=== PATIENT | male | born 1980 | race Two or more races ===

== ENCOUNTER 2019-12-13 08:29 | Outpatient (REF) | payer OTHER, SELFPAY | END 2019-12-13 08:30 | disposition home or self-care (01) | LOC: HO.LAB 08:29 | PROVIDERS: PCP Nurse Practitioner Family; Visit Provider Internal Medicine | DX: Z20.828 Contact with and (suspected) exposure to other viral communicable diseases (principal) | CPT/HCPCS: 87635 ==

== ENCOUNTER 2020-01-10 14:54 | Emergency (ER) | payer OTHER, SELFPAY ==
[2020-01-10 16:45] VITALS: BP 154/95; PULSE 98; RESP 17; TEMP 36.9; O2SAT 99
[2020-01-10 16:47] VITALS: PULSE 98; RESP 17; TEMP 36.9; O2SAT 99; BMI 31.8
--- NOTE | 2020-01-10 17:32 | ED.SKABFB ---
HPI - Skin/Abscess/Foreign Bdy General Chief complaint: Skin/Abscess/Foreign Body Stated complaint: ARM SWELLING Time Seen by Provider: 01/10/20 17:29 Source: patient Mode of arrival: ambulatory History of Present Illness HPI narrative: 39-year-old male presenting to ED complaining of left arm pain, swelling, and erythema x3 days s/p helping a friend outside. Unknown if spider or insect bite. Reports arm feels warm it. Denies fever, chills, injury /rash other area, drainage from area, IV drug abuse MD complaint: rash Onset (ago): day(s) Related Data Previous Rx's Medication Instructions Recorded cephalexin [Keflex] 500 mg PO Q6H 7 Days #28 cap 01/10/20 doxycycline hyclate 100 mg PO BID 7 Days #14 tab 01/10/20 Allergies Allergy/AdvReac Type Severity Reaction Status Date / Time No Known Allergies Allergy Verified 01/10/20 17:10 Review of Systems Review of Systems: Constitutional: No Weight loss, No Fever, No Chills Musculoskeletal: +arm pain, No Myalgias, +arm Swelling Skin: + Skin Lesions, No rash Neuro: No Weakness, No Numbness, No Paresthesias Yes all other systems are reviewed and are negative [facility] Past Medical History Attestation statement: The following information was validated with the patient. Social History Social History Smoking Status: Current every day smoker Use of substances other than those prescribed or required for medical reasons: No Advance Directives: No Advance Directives Information Provided: No Physical Exam Vital Signs: Vital Signs: Last Vital Signs Temp 98.5 F 01/10/20 16:47 Pulse 98 01/10/20 16:47 Resp 17 01/10/20 16:47 BP 154/95 H 01/10/20 16:45 Pulse Ox 99 01/10/20 16:47 Body Mass Index 31.8 Const: General: cooperative and healthy appearing Orientation/consciousness: patient oriented x3 Limitations: no limitations HENMT: Head: Yes normal to inspection Ears: hearing grossly normal bilaterally General nose exam: Normal external nose present Face and sinus: Yes normal facial exam Eyes: General: appearance normal, both eyes and all related structures EOM: EOMs intact bilaterally Neck: Neck: Yes normal visual inspection Chest: Chest palpation & inspection: normal inspection of the chest Neuro: General: patient oriented x3 Gait exam (Neuro): Normal gait present Extrem: Other: + left forearm with tender indurated abscess with surrounding erythema. No fluctuance or draining/pointing General: Yes normal to inspection MDM - Skin/Abscess/Foreign Bdy MDM Narrative Medical decision making narrative: On exam VSS, NAD/well-appearing, concern for early abscess and cellulitis. Lower concern for IVDA. Area will not drainable at this time. 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, he verbalized understanding Area marked with marker Discharge Plan Discharge Clinical Impression: Cellulitis Abscess of skin or subcutaneous tissue Qualifiers: Site of cutaneous abscess: extremity Site of cutaneous abscess of extremity: upper extremity Laterality: left Qualified Code(s): L02.414 - Cutaneous abscess of left upper limb Patient Disposition: Home, Self-Care Instructions: Cellulitis (ED), Abscess (ED) Additional Instructions: You have an early abscess with surrounding cellulitis Keflex and doxycycline are antibiotics, take as prescribed You should be re-evaluated in 2 days If area grows outside of the lines we flaco today, area comes to head like a pimple, or you have fever return to the ED Tiene un absceso temprano con celulitis circundante. Keflex y doxiciclina son antibi?ticos, t?melos seg?n lo prescrito. Deber?a ser reevaluado en 2 d?as Si el ?joce crece fuera de las l?neas que dibujamos hoy, el ?joce se le sube verito un grano o si tiene fiebre, regrese al servicio de urgencias. Prescriptions: New cephalexin [Keflex] 500 mg capsule 500 mg PO Q6H 7 Days Qty: 28 RF: 0 doxycycline hyclate 100 mg tablet 100 mg PO BID 7 Days Qty: 14 RF: 0 Referrals: Physician,Unknown [Primary Care Provider] - 2 days (for re-evaluation) Print Language: Ukrainian
== END 2020-01-10 18:04 | disposition home or self-care (01) ==
PROVIDERS: Emergency Provider Emergency Medicine
DX: L02.414 Cutaneous abscess of left upper limb (principal); M79.602 Pain in left arm; Z79.899 Other long term (current) drug therapy; F17.200 Nicotine dependence, unspecified, uncomplicated; Z71.6 Tobacco abuse counseling
CPT/HCPCS: 99283

== ENCOUNTER 2020-02-10 15:09 | Outpatient (REF) | payer OTHER, SELFPAY | END 2020-02-10 15:10 | disposition home or self-care (01) | LOC: HO.LAB 15:09 | PROVIDERS: Visit Provider Internal Medicine | DX: Z20.828 Contact with and (suspected) exposure to other viral communicable diseases (principal) | CPT/HCPCS: C9803; U0003 ==

== ENCOUNTER 2020-03-19 16:38 | Outpatient (REF) | payer OTHER, SELFPAY | END 2020-03-19 16:39 | disposition home or self-care (01) | LOC: HO.LAB 16:38 | PROVIDERS: Visit Provider Internal Medicine | DX: Z20.822 Contact with and (suspected) exposure to COVID-19 (principal) | CPT/HCPCS: 36415; C9803; U0003 ==

== ENCOUNTER 2020-03-27 14:26 | Outpatient (REF) | payer OTHER, SELFPAY | END 2020-03-27 14:27 | disposition home or self-care (01) | LOC: HO.LAB 14:26 | PROVIDERS: Visit Provider Internal Medicine | DX: Z20.822 Contact with and (suspected) exposure to COVID-19 (principal) | CPT/HCPCS: 36415; C9803; U0003 ==

== ENCOUNTER 2024-04-25 23:03 | Emergency (ER) | payer OTHER, SELFPAY ==
--- NOTE | ~2024-04-25 | XR_ITS ---
CLINICAL HISTORY: swelling, pain Exam: AP view of the right hand with oblique and lateral views of the right thumb. Comparison: None. Findings: No acute fracture, periosteal reaction, or erosion. Mild degenerative change of the 1st metacarpophalangeal joint. Joint spaces are otherwise well preserved. No radiopaque foreign body. There is foreshortening of the ulna with 9 mm of ulnar negative variance. 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 This document has been electronically signed by: Naren Fox MD on 04/25/2024 23:41:11
[2024-04-25 23:10] VITALS: BP 151/97; PULSE 82; RESP 20; TEMP 36.1; O2SAT 99; BMI 33.8
[2024-04-25 23:26] LABS: MANUAL DIFF FLAG NO
[2024-04-25 23:27] LABS: Basophils Absolute Auto 0.1 X10*3/uL (0.0-0.2); Basophils Percent Auto 0.6 % (0-2); Eosinophils Absolute Auto 0.6 X10*3/uL (0.0-0.4); Eosinophils Percent Auto 4.6 % (0-4); Hematocrit 44.4 % (42.0-52.0); Hemoglobin 15.6 g/dl (14.0-18.0); Imm Gran Abs Auto 0.05 X10*3/uL (0.00-0.03); Imm Gran Pct Auto 0.4 % (0.0-0.4); Lymphocytes Absolute Auto 3.3 X10*3/uL (1.2-4.9); Lymphocytes Percent Auto 27.1 % (20-40); Mean Corpuscular HGB Conc 35.1 g/dl (31.0-36.0); Mean Corpuscular Volume 93.9 fL (80.0-98.0); Mean Platelet Volume 9.1 fL (9.4-12.4); Monocytes Absolute Auto 0.7 X10*3/uL (0.1-1.2); Monocytes Percent Auto 6.1 % (2-11); Neutrophils Absolute Auto 7.4 x10*3/uL (2.0-8.3); Neutrophils Percent Auto 61.2 % (45-73); Platelet Count 318 X10*3/uL (160-400); Red Blood Count 4.73 X10*6/uL (4.60-5.80); Red Cell Distribution Width 13.2 % (11.0-16.0); White Blood Count 12.1 X10*3/uL (4.8-10.8)
[2024-04-25 23:42] LABS: Alanine Aminotransferase 27 U/L (0-40); Albumin Level 4.1 g/dL (3.5-5.0); Alkaline Phosphatase 134 U/L (39-117); Anion Gap 14 (12-20); Aspartate Amino Transferase 19 U/L (5-37); Bilirubin Total 0.4 mg/dL (0.0-1.0); Blood Urea Nitrogen 16 mg/dL (9-16); Calcium 9.3 mg/dL (8.4-10.2); Carbon Dioxide 21 mmol/L (22-29); Chloride 109 mmol/L (96-108); Creatinine Clr Calc Pharmacy 141.1; Estimated Glomerular Filt Rate > 60; Glucose Random 99 mg/dL (60-115); Potassium 4.2 mmol/L (3.3-5.1); Sodium 140 mmol/L (135-145); Total Protein 7.2 g/dL (6.5-8.0)
--- NOTE | 2024-04-26 01:03 | ED.EXTPRO ---
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 Related Data Previous Rx's ?Medication ?Instructions ?Recorded cephalexin 500 mg capsule (Keflex) 500 mg PO Q6H 7 days #28 caps 01/10/20 doxycycline hyclate 100 mg tablet 100 mg PO BID 7 days #14 tabs 01/10/20 amoxicillin 875 mg-potassium 1 tab PO BID #20 tabs 04/26/24 clavulanate 125 mg tablet doxycycline hyclate 100 mg tablet 100 mg PO BID #20 tabs 04/26/24 ibuprofen 600 mg tablet 600 mg PO Q6H PRN fever or pain 04/26/24 #30 tabs oxycodone 5 mg tablet 5 mg PO Q6H PRN pain #20 tabs 04/26/24 Allergies Allergy/AdvReac Type Severity Reaction Status Date / Time No Known Allergies Allergy Verified 04/25/24 23:13 Review of Systems Review of Systems: Yes all other systems are reviewed and are negative Physical Exam Vital Signs: Vital Signs: Last Vital Signs Temp 98.3 F 04/26/24 01:37 Pulse 89 04/26/24 01:37 Resp 16 04/26/24 01:37 BP 150/81 H 04/26/24 01:37 Pulse Ox 97 04/26/24 01:37 O2 Del Method Room Air 04/26/24 01:37 BMI result Body Mass Index 33.8 Extrem: Hand/finger images: 1. Diffuse tenderness soft tissue swelling no bony deformity nailbed swollen with loss of nail neurovascular intact Medical Decision Making Medical Decision Making [facility] Narrative: Patient's soft tissue infection of the left thumb and the base of the nail after had nail injury which came off and patient did not keep it clean will prescribe Augmentin and doxycycline advised to follow with orthopedic if not better Lab Data MDM Lab Attestation statement: I reviewed the patient's lab results. 04/25/24 23:22 02/24/25 23:22 Labs: Lab Results 04/25/24 Range/Units 23:22 WBC 12.1 H (4.8-10.8) X10*3/uL RBC 4.73 (4.60-5.80) X10*6/uL Hgb 15.6 (14.0-18.0) g/dl Hct 44.4 (42.0-52.0) % MCV 93.9 (80.0-98.0) fL MCH 33.0 (27.0-33.0) pg MCHC 35.1 (31.0-36.0) g/dl RDW 13.2 (11.0-16.0) % Plt Count 318 (160-400) X10*3/uL MPV 9.1 L (9.4-12.4) fL Immature Gran % (Auto) 0.4 (0.0-0.4) % Neut % (Auto) 61.2 (45-73) % Lymph % (Auto) 27.1 (20-40) % [place] % (Auto) 6.1 (2-11) % Eos % (Auto) 4.6 H (0-4) % Baso % (Auto) 0.6 (0-2) % Lymph # (Auto) 3.3 (1.2-4.9) X10*3/uL [place] # (Auto) 0.7 (0.1-1.2) X10*3/uL Eos # (Auto) 0.6 H (0.0-0.4) X10*3/uL Baso # (Auto) 0.1 (0.0-0.2) X10*3/uL Abs Immat Gran (auto) 0.05 H (0.00-0.03) X10*3/uL Absolute Neuts (auto) 7.4 (2.0-8.3) x10*3/uL Absolute Nucleated RBC 0.000 (0.0-0.012) X10*3/uL Nucleated RBC % (auto) 0.0 (0.0-0.2) /100WBC Sodium 140 (135-145) mmol/L Potassium 4.2 (3.3-5.1) mmol/L Chloride 109 H (96-108) mmol/L Carbon Dioxide 21 L (22-29) mmol/L Anion Gap 14 (12-20) BUN 16 (9-16) mg/dL Creatinine 0.86 (0.5-1.4) mg/dL Estim Creat Clear Calc 141.1 Estimated GFR > 60 Random Glucose 99 (60-115) mg/dL Calcium 9.3 (8.4-10.2) mg/dL Total Bilirubin 0.4 (0.0-1.0) mg/dL AST 19 (5-37) U/L ALT 27 (0-40) U/L Alkaline Phosphatase 134 H (39-117) U/L Total Protein 7.2 (6.5-8.0) g/dL Albumin 4.1 (3.5-5.0) g/dL Independent Interpretation I performed an independent interpretation of an: Plain X-Ray Radiology Impression Discussion of test interpretation with radiology: I have reviewed the radiologist's reading. Radiologist Impression: No fracture Discharge Plan Discharge Clinical Impression: Infected superficial injury of right thumb Patient Disposition: Home, Self-Care Instructions: Wound Infection (DC) Additional Instructions: Local care as advised Keep the right thumb covered and cleaned Take antibiotics as prescribed Pain medication as prescribed Report to the ER if pain does not get better and swelling does not get improved for further management Prescriptions: New ibuprofen 600 mg tablet 600 mg PO Q6H PRN (Reason: fever or pain) Qty: 30 0RF doxycycline hyclate 100 mg tablet 100 mg PO BID Qty: 20 0RF amoxicillin-pot clavulanate 875-125 mg tablet 1 tab PO BID Qty: 20 0RF oxycodone 5 mg tablet 5 mg PO Q6H PRN (Reason: pain) Qty: 20 0RF Rx Instructions: Partial Fill upon patient request. No Action cephalexin [Keflex] 500 mg capsule 500 mg PO Q6H 7 Days Qty: 28 0RF doxycycline hyclate 100 mg tablet 100 mg PO BID 7 Days Qty: 14 0RF Print Language: Estonian
[2024-04-26 01:37] VITALS: BP 150/81; PULSE 89; RESP 16; TEMP 36.8; O2SAT 97
--- OUTSIDE RECORDS SUMMARY | 2024-04-26 01:46 | XMS_ITS | Encounter Summary ---
Author Organization [facility] Address [address] [place] [id number] Care Team Providers Care Inter Com Servicer Name Role Phone Unavailable Primary Care Provider Unavailabl e Encounter Details Date Type Department Care Team (Latest Contact Info) Description 06/09/2018 Abstract [facility] CONVERSIONS Dental, Provider, DDS Social History Tobacco Use Types Packs/Day Years Used Date Smoking Tobacco: Never Assessed Sex and Gender Information Value Date Recorded Sex Assigned at Male 12/30/2021 10:25 AM EDT Legal Sex Male 10:25 AM EDT Gender Identity Male 12/30/2021 10:25 AM EDT Sexual Orientation Straight 12/30/2021 10 :25 AM EDT documented as of this encounter Plan of Treatment Not on file documented as of this encounter Visit Diagnoses Not on filedocumented in this encounter
[2024-04-26] MEDS: Amoxicillin/Potassium Clav 875 MG TABLET PO (01:50)
[2024-04-26] MEDS: Doxycycline Monohydrate 100 MG CAPSULE PO (01:50)
[2024-04-26] MEDS: Morphine Sulfate Immed Release 15 MG TABLET PO (01:50)
[2024-04-26 01:53] VITALS: BP 150/81; PULSE 89; RESP 16; TEMP 36.8; O2SAT 97
== END 2024-04-26 01:54 | disposition home or self-care (01) ==
PROVIDERS: Emergency Provider Internal Medicine
DX: S63.601A Unspecified sprain of right thumb, initial encounter (principal); L02.511 Cutaneous abscess of right hand; M79.642 Pain in left hand; X58.XXXA Exposure to other specified factors, initial encounter; Y93.9 Activity, unspecified; Y92.89 Other specified places as the place of occurrence of the external cause; Y99.9 Unspecified external cause status
CPT/HCPCS: 36415; 73140; 80053; 85025; 99283; 99284

== ENCOUNTER → 2024-04-25 23:27 | Outpatient (BNV) | payer OTHER, SELFPAY | PROVIDERS: Visit Provider Radiology Diagnostic Radiology | DX: M79.645 Pain in left finger(s) (principal) | CPT/HCPCS: 73140 ==

== ENCOUNTER 2024-11-16 20:37 | Emergency (ER) | payer OTHER, SELFPAY ==
[2024-11-16 20:42] VITALS: BMI 33.7
[2024-11-16 20:51] VITALS: BP 152/91; PULSE 77; RESP 16; TEMP 36.8; O2SAT 95
--- NOTE | 2024-11-16 21:01 | ED_ITS ---
HPI - General Adult General Chief complaint: General Medical Stated complaint: blood when using the bathroom Time Seen by Provider: 11/16/24 20:59 Source: patient Mode of arrival: ambulatory Limitations: no limitations History of Present Illness ED Provider: Dick MORGAN HPI narrative: The patient is a 44-year-old male presenting to the ED reporting on Thursday he noted a ball in his rectum which was tender to palpation, reports today he went to move his bowels and noted bright red blood in the toilet. The patient denies associated fever/chills, chest pain, shortness of breath, nausea, vomiting, hematemesis, melena, hematuria, dysuria, recent sick contacts, or recent trauma. The patient reports he does suffer from chronic gastritis which has been untreated for the past year secondary to health insurance issues, reports he has been experiencing a mild increased in his epigastric burning abdominal pain over the past few days. The patient reports fluctuations in his gastric pain are not abnormal. The patient has a photo of the toilet which demonstrates a small amount of bright red blood. Patient reports since the episode this evening the ball near his rectum resolved and he is no longer experiencing any discomfort. The patient denies history of hemorrhoids but does admit to sitting for long periods of time when using the toilet due to playing games on his phone. Related Data Previous Rx's ?Medication ?Instructions ?Recorded cephalexin 500 mg capsule (Keflex) 500 mg PO Q6H 7 day s #28 caps 01/10/20 doxycycline hyclate 100 mg tablet 100 mg PO BID 7 days #14 tabs 01/10/20 amoxicillin 875 mg-potassium 1 tab PO BID #20 tabs clavulanate 125 mg tablet doxycycline hyclate 100 mg tablet 100 mg PO BID #20 ta bs 04/26/24 ibuprofen 600 mg tablet 600 mg PO Q6H PRN fever or p ain 04/26/24 #30 tabs oxycodone 5 mg tablet 5 mg PO Q6H PRN pain #20 tab s 04/26/24 famotidine 20 mg tablet (Pepcid) 20 mg PO BID #28 tabs 11/16/24 omeprazole 20 mg capsule,delayed 20 mg PO DAILY #14 ca ps 11/16/24 release Allergies Allergy/AdvReac Type Severity Reaction Status Date / Time No Known Allergies Allergy Verified 11/16/24 20:49 Review of Systems 2 Review of Systems: Yes all other systems are reviewed and are negative PMFSH Social History Social History Smoked in Last 30 Days: Yes Use of substances other than those prescribed or required for medical reasons: No Advance Directives: No Advance Directives Information Provided: No Do you have a plan to hurt others: No Plan Physical Exam ED Vital Signs: Vital Signs - 24 hr 11/16/24 20:51 Temperature 98.3 F Pulse Rate 77 Respiratory Rate 16 Blood Pressure 152/91 H Pulse Oximetry 95 Oxygen Delivery Method Room Air BMI result Body Mass Index 33.7 CONSTITUTIONAL: The patient appears non-toxic, well nourished and in no acute distress. Vital signs as documented. HEAD: Atraumatic, normocephalic. EYES: EOMs grossly intact, pupils equal, conjunctiva clear, no exudate. ENT: Nares patent, no discharge. Airway patent, no audible stridor, visible mucosa is pink and moist without noted lesions. NECK: Trachea is midline, no obvious masses or gross abnormalities. CHEST: Symmetric movement, normal appearance. LUNGS: LS present and CTAB, no w/r/r. Non-labored work of breathing. CARDIAC: Regular Rhythm, S1/S2 appreciated, no murmurs, rubs or gallops. ABDOMEN: Abdomen soft and non-tender x4 quadrants, no palpable masses or organomegaly. : External rectal exam demonstrates a ruptured external hemorrhoid with no active bleeding, no evidence of other thrombosed hemorrhoids. EXTREMITIES: Normal tone, moves all extremities spontaneously without reported pain. No obvious acute injury or deformity noted. NEURO: Alert and oriented x3, CN II-XII appear grossly intact. Cerebellar Functioning grossly intact. No obvious sensory or motor deficits. Speech clear and appropriate. PSYCH: normal affect, appropriate eye contact, fluid speech, with appropriate response to questioning. No reported suicidality or homicidality. SKIN: Warm, dry, color appropriate, normal turgor. No rashes noted. Medical Decision Making Medical Decision Making [facility] Narrative: 9:51 PM 11/16/2024 (Kartik MORGAN): The patient is a 44-year-old male presenting to the ED reporting on Thursday he noted a ball in his rectum which was tender to palpation, reports today he went to move his bowels and noted bright red blood in the toilet. The patient denies associated fever/chills, chest pain, shortness of breath, nausea, vomiting, hematemesis, melena, hematuria, dysuria, recent sick contacts, or recent trauma. The patient reports he does suffer from chronic gastritis which has been untreated for the past year secondary to health insurance issues, reports he has been experiencing a mild increased in his epigastric burning abdominal pain over the past few days. The patient reports fluctuations in his gastric pain are not abnormal. The patient has a photo of the toilet which demonstrates a small amount of bright red blood. Patient reports since the episode this evening the ball near his rectum resolved and he is no longer experiencing any discomfort. The patient denies history of hemorrhoids but does admit to sitting for long periods of time when using the toilet due to playing games on his phone. The patient's exam is benign, abdominal exam reveals no tenderness. The patient's external rectal exam demonstrates a ruptured external hemorrhoid with no active bleeding in the ED, no evidence of other thrombosed hemorrhoids. The patient's laboratory evaluation is reassuring, no significant anemia, urinalysis is unremarkable. The patient will be discharged with supportive care instructions for hemorrhoids, and per his request we will prescribe a 2 week course of omeprazole and Pepcid. Patient states he now is following with a new primary care provider and will discuss ongoing GERD/gastritis treatment with his PCP. Admission/Observation Consideration of admission/observation: Escalation of care including admission/observation considered Lab Data MDM Lab Attestation statement: I reviewed the patient's lab results. 11/16/24 21:10 11/16/24 21:10 Labs: Lab Results 11/16/24 11/16/24 Range/Units 21:10 21:24 WBC 10.6 (4.8-10.8) X10*3/uL RBC 4.44 L (4.60-5.80) X10*6/uL Hgb 14.6 (14.0-18.0) g/dl Hct 40.9 L (42.0-52.0) % MCV 92.1 (80.0-98.0) fL MCH 32.9 (27.0-33.0) pg MCHC 35.7 (31.0-36.0) g/dl RDW 13.3 (11.0-16.0) % Plt Count 338 (160-400) X10*3/uL MPV 9.0 L (9.4-12.4) fL Immature Gran % (Auto) 0.3 (0.0-0.4) % Neut % (Auto) 43.1 L (45-73) % Lymph % (Auto) 41.1 H (20-40) % [place] % (Auto) 6.8 (2-11) % Eos % (Auto) 7.5 H (0-4) % Baso % (Auto) 1.2 (0-2) % Lymph # (Auto) 4.4 (1.2-4.9) X10*3/uL [place] # (Auto) 0.7 (0.1-1.2) X10*3/uL Eos # (Auto) 0.8 H (0.0-0.4) X10*3/uL Baso # (Auto) 0.1 (0.0-0.2) X10*3/uL Abs Immat Gran (auto) 0.03 (0.00-0.03) X10*3/uL Absolute Neuts (auto) 4.6 (2.0-8.3) x10*3/uL Absolute Nucleated RBC 0.000 (0.0-0.012) X10*3/uL Nucleated RBC % (auto) 0.0 (0.0-0.2) /100WBC Sodium 140 (135-145) mmol/L Potassium 3.9 (3.3-5.1) mmol/L Chloride 108 (96-108) mmol/L Carbon Dioxide 26 (22-29) mmol/L Anion Gap 10 L (12-20) BUN 13 (9-16) mg/dL Creatinine 0.82 (0.5-1.4) mg/dL Estim Creat Clear Calc 146.3 Estimated GFR > 60 Random Glucose 98 (60-115) mg/dL Calcium 9.1 (8.4-10.2) mg/dL Total Bilirubin 0.2 (0.0-1.0) mg/dL AST 24 (5-37) U/L ALT 40 (0-40) U/L Alkaline Phosphatase 138 H (39-117) U/L Total Protein 6.3 L (6.5-8.0) g/dL Albumin 4.2 (3.5-5.0) g/dL Triglycerides 82 (<150) mg/dL Cholesterol 151 (<200) mg/dL LDL Cholesterol, Calc 95 (<100) mg/dL HDL Cholesterol 40 L (>40) mg/dL Lipase 26 (8-78) U/L Urine Color Yellow Urine Appearance Clear Urine pH 6.5 (5.0-9.0) Ur Specific [place] 1.020 (1.005-1.025) Urine Protein Negative (Neg-Trace) mg/dL Urine Glucose (UA) Negative (Negative) mg/dL Urine Ketones Negative (Negative) mg/dL Urine Blood Negative (Negative) Urine Nitrite Negative (Negative) Ur Leukocyte Esterase Negative (Negative) Urine RBC 0-2 (0-2) /HPF Urine WBC 0-5 (0-5) /HPF Ur Squamous Epith Cells 0-2 (0-2) /HPF Urine Bacteria None Seen (None Seen) Hyaline Casts 0-2 (0-2) /LPF Independent Historian Clinical information obtained from an independent historian. History obtained from or confirmed by: Spouse External Record Review External record reviewed: Outpatient record and Prior outpatient labs Tests considered The following testing was considered but not selected: CT Abd and Pelvis Discharge Plan Discharge Clinical Impression: Hemorrhoids, external without complications Gastritis Qualifiers: Gastritis type: unspecified gastritis Chronicity: chronic Gastritis bleeding: w ithout bleeding Qualified Code(s): K29.50 - Unspecified chronic gastritis without bleeding Patient Disposition: Home, Self-Care Instructions: Gastritis (ED), Hemorrhoids (ED), Rectal Bleeding (ED) Additional Instructions: Thank you for choosing [facility]'s Emergency Department for your care today. Thankfully your laboratory evaluation today is reassuring, there was no evidence of anemia or other emergent finding. Your abdominal exam is reassuring and there was no indication for CT imaging. At this time there is no indication for admission to the hospital or continued ED observation, and it is safe to discharge you home. Your presentation of symptoms and exam today are consistent with rectal bleeding from a ruptured external hemorrhoid. There was no evidence of a thrombosed hemorrhoid and thus no indication for medication/cream, or surgical intervention. You are also describing symptoms of chronic uncontrolled gastritis. Please take omeprazole and Pepcid as prescribed until finished. Please stay well hydrated and get plenty of rest. Please eat a high-fiber diet to avoid straining while moving her bowels which could increase your risk for recurrent hemorrhoids. Please do not stay on the toilet for longer than necessary to evacuate your bowels. Please follow up with your primary care physician for re-evaluation, additional management of your symptoms, and continued preventative care. If you do not have a primary care physician, please call the [facility] at [phone] to establish a new primary care physician. While waiting to establish your new primary care physician, you can call our Walk-in Care Clinic at [phone] for non-emergency needs. Please return to the emergency department if you develop a severe or sudden change in your symptoms, a fever over 100.4 that does not improve with Tylenol or Ibuprofen, recurrent vomiting, or any other new or worsening symptoms or concerns. Prescriptions: New famotidine [Pepcid] 20 mg tablet 20 mg PO BID Qty: 28 0RF omeprazole 20 mg capsule,delayed release(DR/EC) 20 mg PO DAILY Qty: 14 0RF No Action cephalexin [Keflex] 500 mg capsule 500 mg PO Q6H 7 Days Qty: 28 0RF doxycycline hyclate 100 mg tablet 100 mg PO BID 7 Days Qty: 14 0RF ibuprofen 600 mg tablet 600 mg PO Q6H PRN (Reason: fever or pain) Qty: 30 0RF doxycycline hyclate 100 mg tablet 100 mg PO BID Qty: 20 0RF amoxicillin-pot clavulanate 875-125 mg tablet 1 tab PO BID Qty: 20 0RF oxycodone 5 mg tablet 5 mg PO Q6H PRN (Reason: pain) Qty: 20 0RF Rx Instructions: Partial Fill upon patient request. Print Language: Hebrew
--- OUTSIDE RECORDS SUMMARY | 2024-11-16 21:13 | XMS_ITS | Clinical Summary ---
Author Organization [employer] Address [address] [place] [address] Care Team Providers Care Certified Medical Technician Assistant Name Role Phone Unavailable Primary Care Provider Unavailabl e Encounters Date Type Department Care Team Description 10/19/2024 Telephone [facility] [address] [place] [address] Kike Mcgarry MD Appointment Request from Last 3 Months Social History Tobacco Use Types Packs/Day Years Used Date Smoking Tobacco: Never Assessed Sex and Gender Information Value Date Recorded Sex Assigned at Male 12/30/2021 10:25 AM EDT Legal Sex Male 10:25 AM EDT Gender Identity Male 12/30/2021 10:25 AM EDT Sexual Orientation Straight 12/30/2021 10 :25 AM EDT Plan of Treatment Health Maintenance Due Date Last Done Comments Depression Screening 1981 Lipid Panel 1981 Disability Screening 1981 Alcohol/Substance Use Screening 1993 Tobacco Screening 1993 Family Planning (PISQ) 1996 HPV Vaccines (1 - Male 3-dos e series) 1996 Hepatitis B Vaccines (1 of 3 - 19+ 3-dose series) 2000 DTaP/Tdap/Td Vaccines (1 - Tdap) 05/29/2012 05/28/2012 COVID-19 Vaccine (3 - 2024-2 6 season) 2024 03/27/2021, 03/06/2021 Influenza Vaccine (#1) 2024 Zoster Vaccines (1 of 2) 06/13/2031 RSV Patients and Patients Aged 60 years or older (1 - 1-dose 75+ series) 2056 HIB Vaccines Aged Out No longer eligi ble based on patient's age to complete this topic Hepatitis A Vaccines Aged Out No long er eligible based on patient's age to complete this topic IPV Vaccines Aged Out No longer eligi ble based on patient's age to complete this topic Meningococcal B Vaccine Aged Out No l onger eligible based on patient's age to complete this topic Meningococcal Vaccine Aged Out No thao yesica eligible based on patient's age to complete this topic Pneumococcal Vaccine: Pediatrics (0 to 5 Years) and At-Risk Patients (6 to 49) Years Aged Out No longer eligible b ased on patient's age to complete this topic RSV under 20 months Aged Out No longe r eligible based on patient's age to complete this topic Rotavirus Vaccines Aged Out No longer eligible based on patient's age to complete this topic
--- OUTSIDE RECORDS SUMMARY | 2024-11-16 21:13 | XMS_ITS | Encounter Summary ---
Author Organization [employer] [facility] Address [address] [place] [address] Care Team Providers Care Assembler Ping Pong Table Name Role Phone Unavailable Primary Care Provider Unavailabl e Encounter Details Date Type Department Care Team (Latest Contact Info) Description 06/09/2018 Abstract C CONVERSIONS Dental, Provider, DDS Social History Tobacco [...]
[2024-11-16 21:14] LABS: MANUAL DIFF FLAG NO
[2024-11-16 21:15] LABS: Hematocrit 40.9 % (42.0-52.0); Hemoglobin 14.6 g/dl (14.0-18.0); Imm Gran Abs Auto 0.03 X10*3/uL (0.00-0.03); Imm Gran Pct Auto 0.3 % (0.0-0.4); Lymphocytes Absolute Auto 4.4 X10*3/uL (1.2-4.9); Mean Corpuscular HGB Conc 35.7 g/dl (31.0-36.0); Mean Corpuscular Hemoglobin 32.9 pg (27.0-33.0); Mean Corpuscular Volume 92.1 fL (80.0-98.0); NRBC Abs Auto 0.000 X10*3/uL (0.0-0.012); NRBC Pct Auto 0.0 /100WBC (0.0-0.2); Platelet Count 338 X10*3/uL (160-400); Red Blood Count 4.44 X10*6/uL (4.60-5.80); White Blood Count 10.6 X10*3/uL (4.8-10.8)
[2024-11-16 21:33] LABS: Alanine Aminotransferase 40 U/L (0-40); Albumin Level 4.2 g/dL (3.5-5.0); Alkaline Phosphatase 138 U/L (39-117); Anion Gap 10 (12-20); Aspartate Amino Transferase 24 U/L (5-37); Blood Urea Nitrogen 13 mg/dL (9-16); Calcium 9.1 mg/dL (8.4-10.2); Carbon Dioxide 26 mmol/L (22-29); Chloride 108 mmol/L (96-108); Cholesterol 151 mg/dL (<200); Creatinine Clr Calc Pharmacy 146.3; Estimated Glomerular Filt Rate > 60; HDL Cholesterol 40 mg/dL (>40); Lipase 26 U/L (8-78); Potassium 3.9 mmol/L (3.3-5.1); Sodium 140 mmol/L (135-145); Total Protein 6.3 g/dL (6.5-8.0); Triglycerides 82 mg/dL (<150)
[2024-11-16 21:37] LABS: Appearance Urine Clear; Glucose Urine UA Negative (Negative); PH 6.5 (5.0-9.0); Specific Gravity - Urine 1.020 (1.005-1.025)
[2024-11-16 22:26] VITALS: BP 152/91; PULSE 77; RESP 16; TEMP 36.8; O2SAT 95
== END 2024-11-16 22:26 | disposition home or self-care (01) ==
PROVIDERS: Emergency Provider Emergency Medicine
DX: K64.4 Residual hemorrhoidal skin tags (principal); K29.50 Unspecified chronic gastritis without bleeding; Z79.899 Other long term (current) drug therapy
CPT/HCPCS: 36415; 80053; 80061; 81001; 83690; 85025; 99283; 99284

== ENCOUNTER 2024-12-04 08:06 | Emergency (ER) | payer OTHER, SELFPAY ==
[2024-12-04 08:17] VITALS: BP 162/91; PULSE 70; RESP 18; TEMP 36.2; O2SAT 99; BMI 33.2
[2024-12-04 08:23] VITALS: BP 165/92; PULSE 70; RESP 18; TEMP 36.5; O2SAT 100
--- NOTE | 2024-12-04 08:27 | PC.NURSE ---
44 M presents to ED with abscess under R arm. A+Ox4, calm, cooperative. Pt is ambulatory. Large abscess in R upper arm. RR even and unlabored. Denies CP or SOB.
--- NOTE | 2024-12-04 08:30 | ED_ITS ---
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 Abdullahi HPI narrative: 44-year-old male came in for evaluation of painful red cystic lesion in the rig ht armpit for 3 days, no fever, no chills, no drainage. Related Data Previous Rx's ?Medication ?Instructions ?Recorded cephalexin 500 mg capsule (Keflex) 500 mg PO Q6H 7 day s #28 caps 01/10/20 doxycycline hyclate 100 mg tablet 100 mg PO BID 7 days #14 tabs 01/10/20 amoxicillin 875 mg-potassium 1 tab PO BID #20 tabs clavulanate 125 mg tablet doxycycline hyclate 100 mg tablet 100 mg PO BID #20 ta bs 04/26/24 ibuprofen 600 mg tablet 600 mg PO Q6H PRN fever or p ain 04/26/24 #30 tabs oxycodone 5 mg tablet 5 mg PO Q6H PRN pain #20 tab s 04/26/24 famotidine 20 mg tablet (Pepcid) 20 mg PO BID #28 tabs 11/16/24 omeprazole 20 mg capsule,delayed 20 mg PO DAILY #14 ca ps 11/16/24 release Allergies Allergy/AdvReac Type Severity Reaction Status Date / Time No Known Allergies Allergy Verified 12/04/24 08:19 Review of Systems Review of Systems: All other systems are reviewed and are negative Constitutional: Reports as per HPI and Reports no additional constitutional complaints Eyes: Reports as per HPI and Reports no additional eye complaints Reports system reviewed and no additional complaints, except as documented Cardiovascular: Reports as per HPI and Reports no additional cardiovascular complaints Respiratory: Reports as per HPI and Reports no additional respiratory complaints Gastrointestinal: Reports as per HPI and Reports no additional gastrointestinal complaints Genitourinary: Reports no additional female genitourinary complaints Musculoskeletal: Reports no additional musculoskeletal complaints Skin/Breast: Reports system reviewed and no additional complaints, except as docu Psychiatric: Reports no additional psychiatric complaints Endocrine: Reports no additional endocrine complaints Hematologic/Lymphatic: Reports no additional hematologic/lymphatic complaints Allergic/Immunologic: Reports no additional allergic/immunologic complaints Reports system reviewed and no additional complaints, except as documented and Reports Abnormal speech present FOR[facility] Social History Social History Smoked in Last 30 Days: No Use of substances other than those prescribed or required for medical reasons: No Do you have a plan to hurt others: No Plan Physical Exam Vital Signs: Vital Signs: Last Vital Signs Temp 97.7 F 12/04/24 08:23 Pulse 70 12/04/24 08:23 Resp 18 12/04/24 08:23 BP 165/92 H 12/04/24 08:23 Pulse Ox 100 12/04/24 08:23 O2 Del Method Room Air 12/04/24 08:23 BMI result Body Mass Index 33.2 Vital signs have been reviewed and appear to be correct. Blood pressure elevated. Heart rate normal. Respiratory rate normal. Temperature normal. Oxygen saturation normal. Appearance: Alert. Oriented X3. No acute distress. Head: Normal external exam. Normocephalic. Atraumatic. No Au signs noted. No raccoon eyes noted Eyes: PERRLA. EOMI. Conjunctiva and sclera normal. Eyelids normal. ENT: TM's Normal. Pharynx normal. Uvula midline. Moist mucous membranes. No trismus noted. No drooling noted. No muffled voice noted. Neck: Normal inspection. Neck supple. FROM. No adenopathy. Thyroid Normal. No meningeal signs. No neck mass noted. CVS: Normal heart rate and rhythm. Heart sound normal. No murmurs noted. Pulses normal throughout. Respiratory: No respiratory distress. Painless inspiration. Breath sounds normal. No wheezes/rales/rhonchi noted. Chest nontender. No accessory muscle usage noted or decreased air movement noted. Abdomen: Soft and nontender. Bowel sounds normal in all 4 quadrants. No distention noted. No organomegaly noted. No visible injury noted. Back: No CVA tenderness. Full range of motion noted. Skin: Skin warm and dry. Normal skin color. Normal skin turgor. No rashes/lesions/lacerations noted. Extremities: Right armpit 4 x 4 cm area of redness, hotness, fluctuation No lower extremity edema. Extremities exhibit normal range of motion. Extremities nontender. Neuro: Oriented X 3. Cranial nerve exam: II-XII are grossly intact No motor deficit. No sensory deficit. Reflexes normal. Course Reevaluation(s) Reevaluation #1: Right axillary arm bed abscess, s/p I and D, no need for antibiotic. Time: 08:50 Medical Decision Making Differential Diagnosis Differential Diagnoses: The differential diagnosis associated with the presentation includes (S/p I and D of right axillary abscess) Admission/Observation Consideration of admission/observation: Escalation of care including admission/observation considered Procedures Abscess I/D Site: upper extremity (Right armpit) Side (if applicable): right Local Anesthetic: lidocaine 1% Amount of anesthesia used (mL): 5 Technique: incised with blade Amount of fluid expressed (mL): 10 Sent for culture/gram staining?: No Irrigation: No Packing used?: none Discharge Plan Discharge Clinical Impression: Cutaneous abscess of right axilla Patient Disposition: Home, Self-Care Instructions: Abscess (ED), Abscess Incision and Drainage (DC) Prescriptions: No Action cephalexin [Keflex] 500 mg capsule 500 mg PO Q6H 7 Days Qty: 28 0RF doxycycline hyclate 100 mg tablet 100 mg PO BID 7 Days Qty: 14 0RF famotidine [Pepcid] 20 mg tablet 20 mg PO BID Qty: 28 0RF omeprazole 20 mg capsule,delayed release(DR/EC) 20 mg PO DAILY Qty: 14 0RF ibuprofen 600 mg tablet 600 mg PO Q6H PRN (Reason: fever or pain) Qty: 30 0RF doxycycline hyclate 100 mg tablet 100 mg PO BID Qty: 20 0RF amoxicillin-pot clavulanate 875-125 mg tablet 1 tab PO BID Qty: 20 0RF oxycodone 5 mg tablet 5 mg PO Q6H PRN (Reason: pain) Qty: 20 0RF Rx Instructions: Partial Fill upon patient request. Print Language: Cape Verdean
--- OUTSIDE RECORDS SUMMARY | 2024-12-04 09:00 | XMS_ITS | Encounter Summary ---
Author Organization [employer] [facility] Address [address] [place] [address] Care Team Providers Care Family Lawyer Name Role Phone Unavailable Primary Care Provider [...]
--- OUTSIDE RECORDS SUMMARY | 2024-12-04 09:00 | XMS_ITS | Clinical Summary ---
Author Organization [employer] Address [address] [place] [address] Care Team Providers Care Transportation Technician Name Role Phone Unavailable Primary Care Provider Unavailabl e Encounters Date Type Department Care Team Description 11/25/2024 Telephone [facility] [address] [place], [place] [id number] Kike Mcgarry MD 10/19/2024 Telephone [facility] [address] [place] [address] Kike Mcgarry MD Appointment Request from Last [...]
[2024-12-04 09:05] VITALS: BP 165/92; PULSE 70; RESP 18; TEMP 36.5; O2SAT 100
[2024-12-04] MEDS: Lidocaine HCl 1 % MPF 5 ML VIAL SUBCUT (09:05)
== END 2024-12-04 09:10 | disposition home or self-care (01) ==
PROVIDERS: Emergency Provider Emergency Medicine
DX: L02.411 Cutaneous abscess of right axilla (principal)
CPT/HCPCS: 10060; 99284; J2003

== ENCOUNTER 2025-02-09 18:55 | Emergency (ER) | payer OTHER, SELFPAY ==
[2025-02-09 19:10] VITALS: BP 155/92; PULSE 88; RESP 18; TEMP 37.2; O2SAT 99; BMI 34.2
--- NOTE | 2025-02-09 19:11 | ED_ITS ---
HPI - General Adult General Chief complaint: Abdominal Pain Stated complaint: General Medical Time Seen by Provider: 02/09/25 23:17 History of Present Illness ED Provider: Polo SMITH narrative: The patient is a 44-year-old male who says that he has a history of gastritis. He has been on omeprazole in the past. Recently he has not had a primary care doctor and he has not had any medications. He says epigastric pains has been getting worse over the last 2 weeks. He feels that these pains are his gastritis pains. He has a new patient appointment coming up with a new primary care doctor in the next couple of weeks. He had hoped to wait until he saw his regular doctor but tonight he felt the pains has been going on too long after 2 weeks and so he came to the emergency department. He has no chest pain or shortness of breath. He has been burping a lot lately. He says that when he eats his pain is temporarily slightly better but then worse again. He has had some nausea but no vomiting. He has had no black stools. Last bowel movement was today and was normal in color. Related Data Previous Rx's ?Medication ?Instructions ?Recorded cephalexin 500 mg capsule (Keflex) 500 mg PO Q6H 7 day s #28 caps 01/10/20 doxycycline hyclate 100 mg tablet 100 mg PO BID 7 days #14 tabs 01/10/20 amoxicillin 875 mg-potassium 1 tab PO BID #20 tabs clavulanate 125 mg tablet doxycycline hyclate 100 mg tablet 100 mg PO BID #20 ta bs 04/26/24 ibuprofen 600 mg tablet 600 mg PO Q6H PRN fever or p ain 04/26/24 #30 tabs oxycodone 5 mg tablet 5 mg PO Q6H PRN pain #20 tab s 04/26/24 famotidine 20 mg tablet (Pepcid) 20 mg PO BID #28 tabs 11/16/24 omeprazole 20 mg capsule,delayed 20 mg PO DAILY #14 ca ps 11/16/24 release omeprazole 40 mg capsule,delayed 40 mg PO DAILY #30 ca ps 02/10/25 release sucralfate 100 mg/mL oral 10 ml PO TID PRN heartburn # 420 mL 02/10/25 suspension Allergies Allergy/AdvReac Type Severity Reaction Status Date / Time No Known Allergies Allergy Verified 02/09/25 19:15 Review of Systems 2 Review of Systems: Yes all other systems are reviewed and are negative [facility] Social History Social History Advance Directives: No Advance Directives Information Provided: Yes Physical Exam ED Vital Signs: Vital Signs - 24 hr 02/09/25 19:10 02/10/25 00:26 02/10/25 01:05 Temperature 98.9 F 0 F L Pulse Rate 88 68 68 Respiratory Rate 18 16 16 Blood Pressure 155/92 H 160/93 H 160/93 H Pulse Oximetry 99 99 99 Oxygen Delivery Method Room Air Room Air Room Air BMI result Body Mass Index 34.2 Const Other: The patient is awake, alert, pleasant, cooperative. He does not appear in overt distress. Orientation/consciousness: patient oriented x3 HENMT Other: The face is symmetrical. ?Mucous membranes moist. Eyes Other: Pupils are round equal, conjunctivae are clear, extraocular movements intact Neck Neck: Yes normal visual inspection and Yes full ROM Resp Effort & Inspection: normal respiratory effort Auscultation: clear to auscultation bilaterally Cardio Rate: regular rate Rhythm: regular rhythm Heart sounds: S1 normal heart sound present and S2 normal heart sound present GI Other: The patient has a epigastric tenderness. No rebound. Otherwise the abdomen seems soft and nontender. No significant right upper quadrant tenderness. Skin Other: The skin is dry and unremarkable General skin exam: no rashes or lesions noted Neuro General: patient oriented x3, gait normal, tone normal, moves all extremities, no focal motor deficits and CN's II-XI intact bilaterally Extrem Other: There is no calf swelling or tenderness. No asymmetry. No peripheral edema. Course Course Course Narrative: This is an RME: Additional HPI, ROS, PE not included below will be deferred to primary provider. RME assessment and note performed by: Jessica Schafer PA-C This is a [id number]-male, hx of gastritis, who presents to the ER with concerns of epigastric pain x 2 weeks. Worsened yesterday. Hx of gastritis. +Nausea, no vomiting. Abd is soft, TTP in the epigastrium Plan: Labs, EKG, further ER eval needed Medications Administered Discontinued Medications Generic Name Dose Route Start Last Admin Trade Name Freq PRN Reason Stop Dose Admin Al Hydroxide/Mg Hydroxide 60 ml 02/10/25 00:33 02/10/25 01:00 Magnesium Hydrox/Alum Hydrox 30 Ml Oral.Susp PO 02/10/25 00:34 60 ml ONCE ONE Administration Omeprazole 40 mg 02/10/25 00:33 02/10/25 00:59 Omeprazole 40 Mg Capsule.Dr PO 02/10/25 00:34 40 mg ONCE ONE Administration Sucralfate 1 gm 02/09/25 23:24 02/10/25 00:26 Sucralfate Oral Suspension 1 Gm/10 Ml Oral.Susp PO 02/09/25 23:25 1 gm ONCE ONE Administration Medical Decision Making Medical Decision Making [facility] Narrative: The patient is a 44-year-old male who comes to the emergency room complaining of epigastric pain that he says is similar to pains that he attributes to gastritis. He says he has been on omeprazole 40 mg daily in the past but has not been on any omeprazole recently. He says that he has been having worsening symptoms over the last 2 weeks and that he had hoped he could wait till an upcoming appointment with a new primary care doctor but he did not feel he could take the discomfort anymore and so came to the emergency room today. He seems quite certain that the pain is similar to problems he has had with a gastritis in the past. He has a an unremarkable EKG. Other labs are unremarkable. Vital signs are unremarkable. He was given sucralfate and also Maalox and pantoprazole. He will be discharged with a prescriptions for omeprazole and sucralfate. Seems to be a gastritis pain syndrome. My suspicion for or an alternative intra-abdominal source of his pain such as biliary colic or other surgical process is low. My suspicion for an acute coronary syndrome is low. Lab Data 02/09/25 19:33 02/09/25 19:33 Labs: Lab Results 02/09/25 Range/Units 19:33 WBC 10.8 (4.8-10.8) X10*3/uL RBC 4.57 L (4.60-5.80) X10*6/uL Hgb 14.9 (14.0-18.0) g/dl Hct 43.8 (42.0-52.0) % MCV 95.8 (80.0-98.0) fL MCH 32.6 (27.0-33.0) pg MCHC 34.0 (31.0-36.0) g/dl RDW 14.0 (11.0-16.0) % Plt Count 358 (160-400) X10*3/uL MPV 9.2 L (9.4-12.4) fL Immature Gran % (Auto) 0.4 (0.0-0.4) % Neut % (Auto) 50.7 (45-73) % Lymph % (Auto) 39.1 (20-40) % [place] % (Auto) 6.1 (2-11) % Eos % (Auto) 2.8 (0-4) % Baso % (Auto) 0.9 (0-2) % Lymph # (Auto) 4.2 (1.2-4.9) X10*3/uL [place] # (Auto) 0.7 (0.1-1.2) X10*3/uL Eos # (Auto) 0.3 (0.0-0.4) X10*3/uL Baso # (Auto) 0.1 (0.0-0.2) X10*3/uL Abs Immat Gran (auto) 0.04 H (0.00-0.03) X10*3/uL Absolute Neuts (auto) 5.5 (2.0-8.3) x10*3/uL Absolute Nucleated RBC 0.000 (0.0-0.012) X10*3/uL Nucleated RBC % (auto) 0.0 (0.0-0.2) /100WBC Sodium 140 (135-145) mmol/L Potassium 4.0 (3.3-5.1) mmol/L Chloride 109 H (96-108) mmol/L Carbon Dioxide 27 (22-29) mmol/L Anion Gap 8 L (12-20) BUN 16 (9-16) mg/dL Creatinine 1.14 (0.5-1.4) mg/dL Estim Creat Clear Calc 105.9 Estimated GFR > 60 Random Glucose 82 (60-115) mg/dL Calcium 8.6 (8.4-10.2) mg/dL Magnesium 2.1 (1.6-2.6) mg/dL Total Bilirubin 0.2 (0.0-1.0) mg/dL Direct Bilirubin < 0.2 (0.0-0.5) mg/dL AST 20 (5-37) U/L ALT 24 (0-40) U/L Alkaline Phosphatase 130 H (39-117) U/L Total Protein 6.6 (6.5-8.0) g/dL Albumin 4.2 (3.5-5.0) g/dL Lipase 30 (8-78) U/L Independent Interpretation I performed an independent interpretation of an: EKG Interpretation: EKG at 00:55 shows normal sinus rhythm at 63 beats per minute. No definite acute ischemic changes. No old EKGs for comparison. Discharge Plan Discharge Clinical Impression: Epigastric pain, Gastritis Patient Disposition: Home, Self-Care Instructions: Gastritis (ED) Prescriptions: New omeprazole 40 mg capsule,delayed release(DR/EC) 40 mg PO DAILY Qty: 30 0RF sucralfate 100 mg/mL suspension 10 ml PO TID PRN (Reason: heartburn) Qty: 420 0RF No Action cephalexin [Keflex] 500 mg capsule 500 mg PO Q6H 7 Days Qty: 28 0RF doxycycline hyclate 100 mg tablet 100 mg PO BID 7 Days Qty: 14 0RF famotidine [Pepcid] 20 mg tablet 20 mg PO BID Qty: 28 0RF omeprazole 20 mg capsule,delayed release(DR/EC) 20 mg PO DAILY Qty: 14 0RF ibuprofen 600 mg tablet 600 mg PO Q6H PRN (Reason: fever or pain) Qty: 30 0RF doxycycline hyclate 100 mg tablet 100 mg PO BID Qty: 20 0RF amoxicillin-pot clavulanate 875-125 mg tablet 1 tab PO BID Qty: 20 0RF oxycodone 5 mg tablet 5 mg PO Q6H PRN (Reason: pain) Qty: 20 0RF Rx Instructions: Partial Fill upon patient request. Referrals: Dari Garcia MD [Physician, Internal Medicine] Interventions: ED Discharge Assessment Last Done: 02/10/25 01:05 Discharge Date/Time: 02/10/25 01:06 Print Language: Mongolian
[2025-02-09 19:45] LABS: MANUAL DIFF FLAG NO
[2025-02-09 19:47] LABS: Hematocrit 43.8 % (42.0-52.0); Hemoglobin 14.9 g/dl (14.0-18.0); Imm Gran Abs Auto 0.04 X10*3/uL (0.00-0.03); Imm Gran Pct Auto 0.4 % (0.0-0.4); Lymphocytes Absolute Auto 4.2 X10*3/uL (1.2-4.9); Mean Corpuscular HGB Conc 34.0 g/dl (31.0-36.0); Mean Corpuscular Hemoglobin 32.6 pg (27.0-33.0); Mean Corpuscular Volume 95.8 fL (80.0-98.0); NRBC Abs Auto 0.000 X10*3/uL (0.0-0.012); NRBC Pct Auto 0.0 /100WBC (0.0-0.2); Platelet Count 358 X10*3/uL (160-400); Red Blood Count 4.57 X10*6/uL (4.60-5.80); White Blood Count 10.8 X10*3/uL (4.8-10.8)
[2025-02-09 20:01] LABS: Alanine Aminotransferase 24 U/L (0-40); Albumin Level 4.2 g/dL (3.5-5.0); Alkaline Phosphatase 130 U/L (39-117); Anion Gap 8 (12-20); Aspartate Amino Transferase 20 U/L (5-37); Blood Urea Nitrogen 16 mg/dL (9-16); Calcium 8.6 mg/dL (8.4-10.2); Carbon Dioxide 27 mmol/L (22-29); Chloride 109 mmol/L (96-108); Creatinine Clr Calc Pharmacy 105.9; Estimated Glomerular Filt Rate > 60; Lipase 30 U/L (8-78); Magnesium 2.1 mg/dL (1.6-2.6); Potassium 4.0 mmol/L (3.3-5.1); Sodium 140 mmol/L (135-145); Total Protein 6.6 g/dL (6.5-8.0)
--- OUTSIDE RECORDS SUMMARY | 2025-02-09 23:47 | XMS_ITS ---
Author Name [facility] Organization Unknown History of Medication Use Medication Directions Dispensed Refills Start Date End Date Stat us Bactrim DS 12/05/2024 active omeprazole 11/16/2024 active Encounters Encounter Type Encounter Reason Primary Diagnosis Location Date Ambulatory TBE Cutaneous absces s of right axilla [facility]) 12/05/2024 Care Team Organization Name Specialty Phone Email Start Date End Da te [facility] 12/06/2024 [facility] 12/05/2024
--- OUTSIDE RECORDS SUMMARY | 2025-02-09 23:47 | XMS_ITS | Encounter Summary ---
Author Organization [employer] [facility] Address [address] [place] [address] Care Team Providers Care Stencil Printer Name Role Phone Unavailable Primary Care Provider [...]
--- OUTSIDE RECORDS SUMMARY | 2025-02-09 23:47 | XMS_ITS | Clinical Summary ---
Author Organization [employer] Address [address] [place] [address] Care Team Providers Care Type Cutter Name Role Phone Unavailable Primary Care Provider Unavailabl e Encounters Date Type Department Care Team Description 11/25/2024 Telephone [facility] [address] [place] [address] Kike Mcgarry MD from Last 3 Months Social History Tobacco [...]
[2025-02-10 00:26] VITALS: BP 160/93; PULSE 68; RESP 16; O2SAT 99
[2025-02-10] MEDS: Sucralfate Oral Suspension 1 GM/10 ML ORAL.SUSP PO (00:26)
--- NOTE | 2025-02-10 00:47 | ECG_ITS ---
Test Reason : EPIGASTRIC PAIN Blood Pressure : */* mmHG Vent. Rate : 63 BPM Atrial Rate : 63 BPM P-R Int : 168 ms QRS Dur : 94 ms QT Int : 402 ms P-R-T Axes : 28 26 14 degrees QTcB Int : 411 ms Normal sinus rhythm Normal ECG No previous ECGs available Referred By: Artie Cuellar Electronically Signed By: KYLAH MADISON MD
[2025-02-10] MEDS: Magnesium Hydrox/Alum Hydrox 30 ML ORAL.SUSP 60 ML PO (01:00)
[2025-02-10 01:05] VITALS: BP 160/93; PULSE 68; RESP 16; TEMP -17.7; TEMP 0; O2SAT 99
== END 2025-02-10 01:06 | disposition home or self-care (01) ==
PROVIDERS: Physician Assistant Medical; Emergency Provider Emergency Medicine
DX: K29.70 Gastritis, unspecified, without bleeding (principal); R10.13 Epigastric pain; R11.0 Nausea
CPT/HCPCS: 36415; 80048; 80076; 83690; 83735; 85025; 93005; 99283; 99284

== ENCOUNTER → 2025-02-10 00:47 | Outpatient (BNV) | payer OTHER, SELFPAY | PROVIDERS: Emergency Provider Emergency Medicine; Visit Provider Internal Medicine Cardiovascular Disease | DX: R10.13 Epigastric pain (principal) | CPT/HCPCS: 93010 ==